=== PATIENT | female | born 1985 | race Caucasian/White ===

== ENCOUNTER 2018-09-28 14:21 | Emergency (ER) | payer OTHER ==
--- NOTE | 2018-09-28 16:02 | ED ---
Back Pain - HPI Summary HPI Summary: Pt. is a 32 y.o female who presents to the ER with complaints of left low back pain x 4 weeks. Pt. states her and her moved 4 weeks ago to [place] and she was moving heavy boxes. Pt. does not recall any specific injuries but states pain has been there since. Pt. notes pain is intermittent and worse at times. Pt. also notes she has a hx of endometriosis and states this sometimes gives her back pain. Pt. notes pain radiates into left leg and into groin. Pt. also notes a hx of of UTIs and kindey stones. Pt. denies fever, chills, cp, sob , cough, urinary sxs, vaginal dc. Sxs are mild-moderate in severity. No current modifying factors. - History of Current Complaint Chief Complaint: EDBackInjuryPain Stated Complaint: BACK PELVIC PAIN Time Seen by Provider: 09/28/18 16:01 Hx Obtained From: Patient Pain Intensity: 5 - Allergies/Home Medications Allergies/Adverse Reactions: Allergies Allergy/AdvReac Type Severity Reaction Status Date / Time Penicillins Allergy Rash Verified 09/28/18 17:18 PMH/Surg Hx/FS Hx/Imm Hx Previously Healthy: Yes Infectious Disease History: No Infectious Disease History: Denies: Traveled Outside the [place] in Last 30 Days - Family History Known Family History: Positive: Non-Contributory - Social History Occupation: Employed Full-time Lives: With Family Review of Systems Constitutional: Negative Negative: Fever, Chills Cardiovascular: Negative Respiratory: Negative Positive: Abdominal Pain. Negative: Vomiting, Diarrhea, Nausea Genitourinary: Negative Negative: dysuria, flank pain Positive: Other - Left low back pain that radiates into hips. Skin: Negative Neurological: Negative Negative: Weakness, Paresthesia, Numbness All Other Systems Reviewed And Are Negative: Yes Physical Exam Triage Information Reviewed: Yes Vital Signs On Initial Exam: Initial Vitals Temp Pulse Resp BP Pulse Ox 98.4 F 75 16 126/99 100 09/28/18 14:26 09/28/18 14:26 09/28/18 14:26 09/28/18 14:26 09/28/18 14:26 Vital Signs Reviewed: Yes Appearance: Positive: Well-Appearing - Pt. sitting on chair in NAD. SO present. Skin: Positive: Warm, Dry Head/Face: Positive: Normal Head/Face Inspection Eyes: Positive: Normal, EOMI Neck: Positive: Supple Respiratory/Lung Sounds: Positive: Clear to Auscultation, Breath Sounds Present Cardiovascular: Positive: Normal, RRR Abdomen Description: Positive: Nontender, Soft Musculoskeletal: Positive: Normal, Strength/ROM Intact, Other - 5/5 strength in bilateral LEs. Positive straight leg test at about 45 degrees. Neurological: Positive: Normal, CN Intact II-III Psychiatric: Positive: Affect/Mood Appropriate Diagnostics - Vital Signs Vital Signs Temp Pulse Resp BP Pulse Ox 09/28/18 14:26 98.4 F 75 16 126/99 100 - Laboratory Result Diagrams: 09/28/18 17:00 09/28/18 17:00 Lab Statement: Any lab studies that have been ordered have been reviewed, and results considered in the medical decision making process. Back Pain Course/Dx - Course Course Of Treatment: Pt. presenting with ongoing left side back pain. Afebrile. No signs of cauda equina syndrome. Basic labs and urine obtained to r/o , uti, kidney stone. Labs and urine unremarkable. Will try flexeril and prednisone for potential SI. Pain could also potentially be from pt.'s endometriosis. Benign abd. exam. Will have pt. f.u with [facility] for further evaluation and referral. Pt. understands and agrees with plan. - Diagnoses Differential Diagnosis/HQI/PQRI: Positive: Arthritis, Epidural Abscess, Herniated Disc, Renal Colic, Strain, Sprain Provider Diagnoses: Back pain, Sacroiliitis Discharge - Sign-Out/Discharge Documenting (check all that apply): Patient Departure Patient Received Moderate/Deep Sedation with Procedure: No - Discharge Plan Condition: Good Disposition: HOME Prescriptions: Cyclobenzaprine TAB* [Flexeril 10 MG TAB*] 10 mg PO TID PRN #12 tab PRN Reason: Pain - Moderate methylPREDNISolone [Medrol Dosepak 4 MG*] 0 mg PO .SEE [employer]CTION #1 tab Patient Education Materials: Sacroiliitis (ED), Lower Back Exercises (ED) Referrals: [facility] [Outside] [facility] [place] [facility] REFERRAL [Outside] Additional Instructions: Schedule a close follow up appointment with the [facility] Apply warm compresses Medication as directed Gentle stretching and massage Return to ER if symptoms change or worsen - Billing Disposition and Condition Condition: GOOD Disposition: Home
[2018-09-28 17:15] LABS: ABS Basophils 0.1 10^3/ul (0-0.2); ABS Eosinophils 0.1 10^3/ul (0-0.6); ABS Lymphocytes 2.6 10^3/ul (1.0-4.8); ABS Monocytes 0.5 10^3/ul (0-0.8); ABS Neutrophils 6.3 10^3/ul (1.5-7.7); Eosinophil % 0.8 %; Hematocrit 42 % (35-47); Hemoglobin 14.6 g/dL (12.0-16.0); Lymphocyte % 27.2 %; Mean Corpuscular HGB Conc 35 g/dL (31-36); Mean Corpuscular Hemoglobin 32 pg (27-31); Mean Corpuscular Volume 90 fL (80-97); Mean Platelet Volume 7.9 fL (7.4-10.4); Platelet Count 258 10^3/uL (150-450); Red Blood Count 4.63 10^6 /uL (3.70-4.87); Red Cell Distribution Width 13 % (10-15); White Blood Count 9.5 10^3/uL (3.5-10.8)
[2018-09-28 17:31] LABS: Urine Appearance Clear; Urine Bilirubin Negative (Negative); Urine Blood Negative (Negative); Urine Color Yellow; Urine Glucose Negative (Negative); Urine Ketones 1+ (Negative); Urine Nitrite Negative (Negative); Urine Protein Negative (Negative); Urine Urobilinogen Negative (Negative)
[2018-09-28 17:33] LABS: ALT 9 U/L (7-52); AST 18 U/L (13-39); Albumin 4.3 g/dL (3.2-5.2); Albumin/Globulin Ratio 1.3 (1-3); Alkaline Phosphatase 45 U/L (34-104); Anion Gap 9 mmol/L (2-11); Blood Urea Nitrogen 11 mg/dL (6-24); C Reactive Protein 4.81 mg/L (<8.01); CO2 Carbon Dioxide 23 mmol/L (22-32); Calcium 9.5 mg/dL (8.6-10.3); Chloride 106 mmol/L (101-111); EGFR African American 78.8 (>60); EGFR Non-African American 65.1 (>60); Globulin 3.2 g/dL (2-4); Glucose 92 mg/dL (70-100); Potassium 4.7 mmol/L (3.5-5.0); Sodium 138 mmol/L (135-145); Total Protein 7.5 g/dL (6.4-8.9)
[2018-09-28 17:39] LABS: HCG Pregnancy < 0.60 mIU/mL
[2018-09-28 18:22] VITALS: BP 130/98
== END 2018-09-28 18:21 | disposition home or self-care (01) ==
LOC: ED 14:21
DX: M54.5 Low back pain (principal); M46.1 Sacroiliitis, not elsewhere classified; Z87.440 Personal history of urinary (tract) infections; Z87.442 Personal history of urinary calculi; Z88.0 Allergy status to penicillin
CPT/HCPCS: 36415; 80053; 81003; 84702; 85025; 86140; 99282